=== PATIENT | male | born 1940 | race Caucasian/White ===

== ENCOUNTER 2018-08-15 10:11 | Day surgery (SDC) | payer OTHER ==
[~2018-08-15] VITALS: Ht 188 cm; Wt 92.2 kg
[~2018-08-15 10:11] MED LIST: AMLO10; AMOX500; DIAZ10; FAMO20 PO; KETO10 PO; OXYACE5T PO; PROM25 PO; TAMS.4ER PO
[2018-08-15] MEDS ORDERED: ALPR1 PO (10:58)
== END 2018-08-15 12:14 | disposition home or self-care (01) ==
LOC: ORSCSDS 10:11
PROVIDERS: Surgery
PROC: 0DJD8ZZ Inspection of Lower Intestinal Tract, Via Natural or Artificial Opening Endoscopic (ICD-10-PCS; principal; 2018-08-15 11:45)
DX: Z12.11 Encounter for screening for malignant neoplasm of colon (principal); Z86.010 Personal history of colon polyps; K57.30 Diverticulosis of large intestine without perforation or abscess without bleeding; E78.5 Hyperlipidemia, unspecified; Z87.891 Personal history of nicotine dependence; Z79.82 Long term (current) use of aspirin; Z79.899 Other long term (current) drug therapy
CPT/HCPCS: J2704; J7120

== ENCOUNTER → 2019-05-30 | Outpatient (CLI) | payer OTHER ==
[~2019-05-30] MED LIST changes: +ALPR1 PO
[2019-06-02 13:08] LABS: M-SPIKE, % Not Observed % (Not Observed); PROTEIN,TOTAL,URINE <4.0 mg/dL (Not Estab.)
== END | disposition home or self-care (01) ==
LOC: LAB 08:30 → LAB SHORT 08:30 → LAB FUT 05-25 10:55
PROVIDERS: Internal Medicine
DX: E87.8 Other disorders of electrolyte and fluid balance, not elsewhere classified (principal)
CPT/HCPCS: 81050; 84156; 84166